=== PATIENT | male | born 1995 | race African-American/Black ===

== ENCOUNTER 2016-08-07 18:21 | Emergency (ER) | payer OTHER ==
[2016-08-07] MEDS ORDERED: OXYCODONE-ACETAMINOPHEN 5-325 MG TABLET PO ONE (18:35)
--- NOTE | 2016-08-07 18:37 | ER Document Report ---
ED Medical Screen (RME) - General Stated Complaint: LEFT KNEE PAIN Mode of Arrival: Wheelchair Information source: Patient Notes: Patient presents to the emergency department with complaints of left knee pain. He reports he was playing basketball and ran into the wall. Reports unable to walk afterwards. No past medical history of injury to the knee. I have greeted and performed a rapid initial assessment of this patient. A comprehensive ED assessment and evaluation of the patient, analysis of test results and completion of the medical decision making process will be conducted by additional ED providers. Past Medical History - Immunizations Immunizations up to date: Yes Hx Diphtheria, Pertussis, Tetanus Vaccination: Yes
[2016-08-07] MEDS ORDERED: HYDROCODONE/ACETAMINOPHEN 5-325 MG 6 TAB/DSPK PO PRN (19:19)
--- NOTE | 2016-08-07 19:24 | ER Document Report ---
ED Extremity Problem, Lower - General Chief Complaint: Left Knee Pain Stated Complaint: LEFT KNEE PAIN Time seen by provider: 19:20 Mode of Arrival: Wheelchair Information source: Patient - HPI Patient complains to provider of: Injury, Pain, Swelling Location: Knee Occurred: Just prior to arrival Where: Outdoors, Sports Onset/Duration: Sudden Quality of pain: Achy Severity: Moderate Pain Level: 4 Context: Direct blow Recent injury: Yes Exacerbated by: Movement, Walking Relieved by: Nothing Notes: Patient is a 20-year-old male presenting to the emergency room complaining of pain to left knee from injury sustained just prior to arrival, patient was sent to the emergency room from urgent care Center for further evaluation, states he was playing basketball and ran into a wall, causing injury to his knee, he has pain to the medial portion of his knee, pain with range of motion testing, unable to ambulate on it without significant pain, denies a history of similar symptoms previously, no numbness or tingling to the extremity, denies any other injury - Related Data Allergies/Adverse Reactions: loracarbef [From Lorabid] Allergy (Verified 08/07/16 18:36) Past Medical History - General Information source: Patient - Social History Smoking Status: Never Smoker Chew tobacco use (# tins/day): No Frequency of alcohol use: None Drug Abuse: None Family History: Reviewed & Not Pertinent Patient has suicidal ideation: No Patient has homicidal ideation: No Renal/ Medical History: Denies: Hx Peritoneal Dialysis - Immunizations Immunizations up to date: Yes Hx Diphtheria, Pertussis, Tetanus Vaccination: Yes Review of Systems - Review of Systems Constitutional: No symptoms reported EENT: No symptoms reported Cardiovascular: No symptoms reported Respiratory: No symptoms reported Gastrointestinal: No symptoms reported Genitourinary: No symptoms reported Male Genitourinary: No symptoms reported Musculoskeletal: See HPI Skin: No symptoms reported Hematologic/Lymphatic: No symptoms reported Neurological/Psychological: No symptoms reported -: Yes All other systems reviewed and negative Physical Exam - Vital signs Vitals: Temp Pulse Resp BP Pulse Ox 97.3 F 57 L 14 127/66 H 100 08/07/16 18:36 08/07/16 18:36 08/07/16 18:36 08/07/16 18:36 08/07/16 18:36 Interpretation: Normal - Notes Notes: - General General appearance: Appears well, Alert In distress: None - HEENT Head: Normocephalic, Atraumatic Eyes: Normal Conjunctiva: Normal Extraocular movements intact: Yes Eyelashes: Normal Pupils: PERRL - Respiratory Respiratory status: No respiratory distress - Cardiovascular Rhythm: Regular - Abdominal Inspection: Normal - Back Back: Normal - Extremities General upper extremity: Normal inspection General lower extremity: Left knee with tenderness to palpate on the medial joint line, pain with range of motion testing, mild swelling, distal sensation and motor is intact - Neurological Neuro grossly intact: Yes Orientation: AAOx4 Katherine Coma Scale Eye Opening: Spontaneous Chuckey Coma Scale Verbal: Oriented Chuckey Coma Scale Motor: Obeys Commands Katherine Coma Scale Total: 15 - Psychological Associated symptoms: Normal affect, Normal mood - Skin Skin Temperature: Warm Skin Moisture: Dry Skin Color: Normal Course - Re-evaluation Re-evalutation: 08/08/16 03:50 Patient with likely soft tissue knee injury, physical exam findings are not consistent with the imaging findings regarding the tibial tuberosity, his pain and tenderness or along the medial joint line, patient was provided with pain medication, and a knee immobilizer, family reports he has crutches in the car that he continues and he declined any further crutches today, he was provided with instructions and information for follow-up with orthopedics, patient and family members acknowledge understanding and agreement with this plan - Vital Signs Vital signs: Temp Pulse Resp BP Pulse Ox 98.1 F 61 19 149/84 H 100 08/07/16 19:56 08/07/16 19:56 08/07/16 19:56 08/07/16 19:56 08/07/16 19:56 - Diagnostic Test Radiology reviewed: Image reviewed, Reports reviewed Procedures - Immobilization Left Knee Time completed: 19:23 Pre-Proc Neuro Vasc Exam: Normal Immobilizer type: Knee immobilizer Performed by: PCT Post-Proc Neuro Vasc Exam: Normal Alignment checked and good: Yes Discharge - Discharge Clinical Impression: Left knee injury Qualifiers: Encounter type: initial encounter Qualified Code(s): S89.92XA - Unspecified injury of left lower leg, initial encounter Condition: Stable Disposition: HOME, SELF-CARE Instructions: Suspected Internal Knee Injury ([facility]), Sprained Knee ([facility]), Knee Immobilizing Splint ([facility]), Ice & Elevation ([facility]) Additional Instructions: Follow up with your primary care provider and an orthopedic surgeon in one to 2 days. Return to the emergency room immediately if symptoms worsen or any additional concerns. Ice and elevate the affected extremity. Limit weightbearing. Prescriptions: Oxycodone HCl/Acetaminophen [Percocet 5-325 mg Tablet] 1 - 2 tab PO ASDIR PRN # 15 tablet PRN Reason: Forms: Special Work Note Referrals: RIZWANA BUSTOS DO [ACTIVE STAFF] - Follow up as needed
[2016-08-07 19:57] VITALS: BP 149/84
== END 2016-08-07 20:04 | disposition home or self-care (01) ==
LOC: ER 18:21
DX: S89.92XA Unspecified injury of left lower leg, initial encounter (principal); M25.562 Pain in left knee; W22.01XA Walked into wall, initial encounter; Y93.67 Activity, basketball
CPT/HCPCS: 99283; 73562; L1830